=== PATIENT | female | born 1995 | race Two or more races ===

== ENCOUNTER 2022-11-11 00:36 | Emergency (ER) | payer SELFPAY ==
[2022-11-11] MEDS ORDERED: Sodium Chloride 0.9% 2.5 ML Syringe FLUSH PRN (01:03)
[2022-11-11] MEDS ORDERED: Metoclopramide 10 MG/2 ML SDV IVPUSH ONE (01:03)
[2022-11-11] MEDS ORDERED: Sodium Chloride 0.9% 10 ML Syringe FLUSH PRN (01:03)
[2022-11-11] MEDS ORDERED: Lactated Ringers 1,000 ML IV ONE ×2 (02:09)
== END 2022-11-11 02:56 | disposition home or self-care (01) ==
LOC: MW.ED 00:36
DX: S06.0X9A Concussion with loss of consciousness of unspecified duration, initial encounter (principal); Y04.0XXA Assault by unarmed brawl or fight, initial encounter
CPT/HCPCS: 70450; 96374; 99283; J2765; J3490; J7120